=== PATIENT | female | born 1970 | race Caucasian/White ===

== ENCOUNTER 2017-07-31 15:31 | Emergency (ER) | payer MEDICAID ==
[2017-07-31] MEDS ORDERED: Sodium Chloride 0.9% 10 ML Syringe FLUSH PRN (15:36)
[2017-07-31] MEDS ORDERED: Sodium Chloride 0.9% 1,000 ML IV ONE (15:36)
[2017-07-31] MEDS ORDERED: HYDROmorphone 0.5 MG/0.5 ML SYRINGE IVPUSH ONE ×2 (15:37→16:17)
[2017-07-31] MEDS ORDERED: Ondansetron 4 MG/2 ML SDV IVPUSH ONE (15:37)
--- NOTE | 2017-07-31 15:54 | EDM.PDOC ---
ED HPI GENERAL MEDICAL PROBLEM - General Chief Complaint: Trauma Stated Complaint: FELL OFF 8 FOOT LADDER Time Seen by Provider: 07/31/17 15:31 Source of Information: Reports: Patient History Limitations: Reports: No Limitations - History of Present Illness INITIAL COMMENTS - FREE TEXT/NARRATIVE: Patient is a 47-year-old female presents ED complaining of lumbar back pain. Patient states she was standing at the second rung from the top of a 8 foot ladder hanging fascia when she fell back landing on her back. States she was not knocked out. Pain is isolated to her low back. Has some mild numbness to the anterior left thigh. She denies any pain to the head, neck, upper back, chest, abdomen, upper/lower extremities or any additional complaints. Patients pain is moderate in severity. She has taken only tylenol. Fall occurred approx 1 hr prior to arrival. She fell on the concrete sidewalk. She has no incontinence to urine or stool, n/t to fingers/hand/feet, weakness to the upper/ lower extremities. She is not on any medications. She smokes less then 1 ppwk. Denies any recreational drug use and or alcohol use. Fall was witnessed. Treatments PRESS WRITER: Reports: Acetaminophen Lower Back Pain Score (Numeric/FACES): 10 - Related Data Allergies Allergy/AdvReac Type Severity Reaction Status Date / Time No Known Allergies Allergy Verified 07/31/17 15:33 Home Meds: Home Meds . [No Known Home Meds] 07/31/17 [History] Past Medical History - Past Health History Medical/Surgical History: Denies Medical/Surgical History Social & Family History - Tobacco Use Smoking Status *Q: Current Every Day Smoker Years of Tobacco use: 15 Packs/Tins Daily: 0.2 Review of Systems - Review of Systems Review Of Systems: ROS reveals no pertinent complaints other than HPI. ED EXAM, GENERAL - Physical Exam Exam: See Below Exam Limited By: No Limitations General Appearance: Alert, WD/WN, Moderate Distress Eye Exam: Bilateral Eye: EOMI, Nystagmus (none noted), PERRL Ears: Hearing Grossly Normal Nose: Normal Inspection, Normal Mucosa, No Blood Throat/Mouth: Normal Inspection, Normal Oropharynx, Normal Voice, No Airway Compromise Head: Atraumatic, Normocephalic Neck: Normal Inspection, Supple, Non-Tender, Full Range of Motion Respiratory/Chest: No Respiratory Distress, Lungs Clear, Normal Breath Sounds, No Accessory Muscle Use, Chest Non-Tender Cardiovascular: Normal Peripheral Pulses, Regular Rate, Rhythm, No Murmur Peripheral Pulses: 3+: Posterior Tibial (L), Posterior Tibial (R), 4+: Radial (L ), Radial (R) GI/Abdominal: Normal Bowel Sounds, Soft, Non-Tender, No Organomegaly, No Distention Back Exam: Normal Inspection, Decreased Range of Motion, Paraspinal Tenderness ( lumbar spine waistline), Vertebral Tenderness (lumbar spine, waistline). No: Muscle Spasm Extremities: Normal Inspection, Normal Range of Motion, Non-Tender, No Pedal Edema, Normal Capillary Refill, Other (NO weakness noted to the lower extremities. Mild numbness to the left anterior thigh. No sensory changes distally. Small bruise with minimal swelling to the left anterior proximal lower leg medially. Minimal pain with palpation. ) Neurological: Alert, Oriented, CN II-XII Intact, Normal Cognition, No Motor/ Sensory Deficits Psychiatric: Normal Affect, Normal Mood Skin Exam: Warm, Dry, Intact, Normal Color, No Rash Course - Vital Signs Last Recorded V/S: Last Vital Signs Temp 96.9 F 07/31/17 18:00 Pulse 79 07/31/17 18:00 Resp 18 07/31/17 18:00 BP 158/85 H 07/31/17 18:00 Pulse Ox 97 07/31/17 18:00 - Orders/Labs/Meds Labs: Laboratory Tests 07/31/17 07/31/17 07/31/17 Range/Units 16:08 16:08 17:50 WBC 15.20 H (3.98-10.04) K/mm3 RBC 4.47 (3.98-5.22) M/mm3 Hgb 12.4 (11.2-15.7) gm/L Hct 38.7 (34.1-44.9) % MCV 86.6 (79.4-94.8) fl MCH 27.7 (25.6-32.2) pg MCHC 32.0 L (32.2-35.5) g/dl RDW Std Deviation 50.3 H (36.4-46.3) fL Plt Count 441 H (182-369) K/mm3 MPV 9.9 (9.4-12.3) fl Neutrophils % (Manual) 79 H (40-60) % Band Neutrophils % 1 (0-10) % Lymphocytes % (Manual) 17 L (20-40) % Atypical Lymphs % 0 % Monocytes % (Manual) 1 L (2-10) % Eosinophils % (Manual) 2 (0.7-5.8) % Basophils % (Manual) 0 L (0.1-1.2) Toxic Granulation 2+ moderate Platelet Estimate Increased Plt Morphology Comment Normal RBC Morph Comment Normal Sodium 140 (136-145) mEq/L Potassium 3.8 (3.5-5.1) mEq/L Chloride 106 (98-107) mEq/L Carbon Dioxide 23 (21-32) mEq/L Anion Gap 14.8 (5-15) BUN 18 (7-18) mg/dL Creatinine 0.9 (0.55-1.02) mg/dL Est Cr Clr Drug Dosing 79.02 mL/min Estimated GFR (MDRD) > 60 (>60) mL/min BUN/Creatinine Ratio 20.0 H (14-18) Glucose 120 H (74-106) mg/dL Calcium 8.9 (8.5-10.1) mg/dL Total Bilirubin 0.3 (0.2-1.0) mg/dL AST 43 H (15-37) U/L ALT 49 (14-59) U/L Alkaline Phosphatase 65 (46-116) U/L Total Protein 7.0 (6.4-8.2) g/dl Albumin 3.6 (3.4-5.0) g/dl Globulin 3.4 gm/dL Albumin/Globulin Ratio 1.1 (1-2) Lipase 65 L (73-393) U/L Urine Color Yellow (Yellow) Urine Appearance Clear (Clear) Urine pH 6.5 (5.0-8.0) Ur Specific Donaldson 1.020 (1.005-1.030) Urine Protein 1+ H (Negative) Urine Glucose (UA) Negative (Negative) Urine Ketones 1+ H (Negative) Urine Occult Blood Trace-intact H (Negative) Urine Nitrite Negative (Negative) Urine Bilirubin Negative (Negative) Urine Urobilinogen 0.2 (0.2-1.0) Ur Leukocyte Esterase Negative (Negative) Urine RBC 0-5 (0-5) /hpf Urine WBC 0-5 (0-5) /hpf Ur Epithelial Cells 10-20 H (0-5) /hpf Urine Bacteria Not seen (FEW) /hpf Urine Mucus Not seen (FEW) /hpf Meds: Medications Discontinued Medications Generic Name Dose Route Start Last Admin Trade Name Freq PRN Reason Stop Dose Admin Cyclobenzaprine HCl 10 mg 07/31/17 16:17 07/31/17 16:27 Flexeril PO 07/31/17 16:18 10 mg ONETIME ONE Administration Hydromorphone HCl 0.5 mg 07/31/17 15:37 07/31/17 15:48 Dilaudid IVPUSH 07/31/17 15:38 0.5 mg ONETIME ONE Administration Hydromorphone HCl 0.5 mg 07/31/17 16:17 07/31/17 16:23 Dilaudid IVPUSH 07/31/17 16:18 0.5 mg ONETIME ONE Administration Sodium Chloride 1,000 mls @ 250 mls/hr 07/31/17 15:36 07/31/17 15:50 Normal Saline IV 07/31/17 19:35 250 mls/hr ONETIME ONE Administration Iopamidol 125 ml 07/31/17 16:25 07/31/17 16:44 Isovue-300 (61%) IVPUSH 07/31/17 16:26 125 ml ONETIME ONE Administration Ondansetron HCl 4 mg 07/31/17 15:37 07/31/17 15:46 Zofran IVPUSH 07/31/17 15:38 4 mg ONETIME ONE Administration Sodium Chloride 10 ml 07/31/17 15:36 07/31/17 15:45 Saline Flush FLUSH 10 ml ASDIRECTED PRN Administration Keep Vein Open Sodium Chloride 10 ml 07/31/17 16:25 07/31/17 16:45 Saline Flush FLUSH 07/31/17 16:26 10 ml ONETIME ONE Administration - Re-Assessments/Exams Free Text/Narrative Re-Assessment/Exam: Discussed patient with Dr.K. Byrnes. She has evaluated the patient along with me on admission. Reviewed all labs and studies with her. Agrees with plan and disposition. Pain is isolated to the mid lumbar spine along the waistline worse with palpation. Pain is quite severe with admission to the ED. Peripheral IV with normal saline ordered along with Dilaudid 0.5 mg and Zofran 4 mg IVP. Initial labs and studies include CBC, chem 14, lipase, UA, an x-ray of the lumbar spine. Patient continues to have pain to the lumbar spine. Ordered dilaudid 0.5 mg IVP and flexeril 10mg PO. X-ray of the lumbar spine indicated compression fracture to L2. On reassessment, patient continues to deny pain to the head, neck, upper back, chest, and abdomen. Dr. Thornton suggests CT chest, abdomen, pelvis with IV contrast. 07/31/17 16:30 Per regional owner operator truck driver patient had a abnormal reaction with iodine to the eyes. She states her eyes fully swelled shut. She had no anaphylactic reaction. She has no allergies to shellfish. She is concerned about receiving the CT IV contrast. We offered to premedicate her with Benadryl and also prednisone. Patient does not want the prednisone and has elected to hold off on taking the Benadryl unless she has some symptoms after the CT. regional owner operator truck driver has made aware that reaction is very low probability. Patient has agreed to proceed with CT chest, abdomen, pelvis with IV contrast without premedication. 07/31/17 17:30 CT chest Impression: Nothing acute is appreciated on CT study of the chest. CT abdomen/pelvis impression: Fracture within the superior aspect of L2. Retrolisthesis posterior fragmen by 9mm. Patient requests [facility] to consult Neurosurgeon. [address] Laura detective automobile section Neurosurgeon. Requests patient be transported to [facility] ER to have MRI obtained. She will be admitted with surgery most likely tomorrow. Ambulance has been notified. Transfer paperwork has been completed. Departure - Departure Time of Disposition: 17:48 Disposition: DC/Tfer to [facility] 02 Condition: Fair Clinical Impression: Fracture of lumbar spine Qualifiers: Encounter type: initial encounter Lumbar vertebra fracture level: L2 Fracture type: closed Fracture morphology: unspecified fracture morphology Qualified Code (s): S32.029A - Unspecified fracture of second lumbar vertebra, initial encounter for closed fracture - Discharge Information Referrals: PCP,Not In Area [Primary Care Provider] - Forms: ED Department Discharge
[2017-07-31] MEDS ORDERED: Cyclobenzaprine 10 MG Tab PO ONE (16:17)
[2017-07-31] MEDS ORDERED: Sodium Chloride 0.9% 10 ML Syringe FLUSH ONE (16:25)
[2017-07-31] MEDS ORDERED: Iopamidol 612 MG/ML 150 ML Bottle IVPUSH ONE (16:25)
--- NOTE | 2017-07-31 17:21 | CT ---
CT chest Technique: Multiple axial sections were obtained from above the lung apices inferiorly through the lung bases. Intravenous contrast was utilized. Comparison: No previous chest imaging is available. Findings: Aorta and pulmonary arteries appear within normal limits. Minimal coronary artery calcification is seen. No pericardial thickening is seen. Mediastinum and hilar regions show no adenopathy or mass. No pericardial effusion is seen. Very minimal atelectasis seen posteriorly within the right lung base. Very slight low density is noted within the pleura of the lung bases which is believed to be due to artifact from the soft tissue lung interface. No pneumothorax is felt to be present. No pleural effusions are seen. No compression deformities are seen within the thoracic spine. No discrete rib fracture is seen. Reconstructed sagittal images show the sternum to appear intact. Impression: 1. Incidental findings. Nothing acute is appreciated on CT study of the chest. Diagnostic code #2 CT abdomen and pelvis Technique: Multiple axial sections were obtained from above the dome of the diaphragm inferiorly through the pubic symphysis. Intravenous contrast was utilized. No oral contrast has been given. Comparison: Previous lumbar spine x-ray performed on the same day, no previous abdominal or pelvic CT exam is available. Findings: Low density is seen adjacent to the ligamentum teres fissure which is felt compatible with incidental fat. Liver shows no other focal parenchymal abnormality. Spleen appears within normal limits. Adrenal glands show no nodule. Pancreas is within normal limits. Kidneys show symmetric contrast enhancement and appear within normal limits. Aorta shows minimal atherosclerotic change without aneurysm. No retroperitoneal adenopathy or mesenteric abnormalities are seen. No pelvic mass or adenopathy is seen. No free fluid or inflammatory change is seen. Bone window settings were obtained which show a compression fracture with displaced fragments involving the superior aspect of L2. Retrolisthesis fragment is seen posteriorly with this fragment being displaced into the central canal by 9 mm. This could certainly cause nerve injury as the finding causes significant central canal stenosis. Degenerative change scattered within the spine with disc space narrowing. Disc space narrowing is most severe at L5-S1 with vacuum phenomena. No pelvic fracture is seen. Impression: 1. Fracture within the superior aspect of L2. Retrolisthesis posterior fragment by 9 mm causing significant central canal stenosis which could certainly cause nerve injury. 2. Other incidental findings. Nothing acute is otherwise seen. Diagnostic code #5
--- NOTE | 2017-08-02 10:21 | CR ---
Lumbar spine: AP, lateral and coned-down lateral views centered to the lumbosacral junction were obtained. Comparison: No prior study. Moderate compression deformity is seen within the superior vertebral body of L2. Displaced posterior vertebral line is seen as well as bony fragment seen anteriorly. Severe disc space narrowing with vacuum phenomena is seen within the L5-S1 disc. Disc space narrowing is noted throughout the lower thoracic spine. Scattered endplate osteophytes are seen. Pedicles are intact. No additional fracture is seen. Impression: 1. Moderate compression deformity superiorly within L2 with displaced posterior vertebral line and small displaced anterior fragment. 2. Scattered degenerative change. Diagnostic code #3
== END 2017-07-31 18:07 ==
LOC: JD.ED 15:31
DX: S32.029A Unspecified fracture of second lumbar vertebra, initial encounter for closed fracture (principal); F17.210 Nicotine dependence, cigarettes, uncomplicated; W11.XXXA Fall on and from ladder, initial encounter
CPT/HCPCS: 36415; 71260; 72100; 74177; 80053; 81001; 83690; 85025; 96361; 96374; 96375; 96376; 99285; A9270; J1170; J2405; J7040; J7050; Q9967